=== PATIENT | female | born 1935 | race Caucasian/White ===

== ENCOUNTER 2017-11-02 16:19 | Emergency (ER) | payer MEDICARE ==
[~2017-11-02] VITALS: Ht 162.6 cm; Wt 79.4 kg
[~2017-11-02 16:19] MED LIST: AMOX250 PO; ASPI81EC PO; CEFU500 PO; CEPH500 PO; COPAXONE INJ; CYAN1000 PO; DOCU100 PO; ERGO400 PO; FISH1000 PO; HYDACE5325 PO; HYDCHL12.5 PO; HYDR1TAB94 PO; LANS15EC PO; LAVAP17G PO; LIDO5TP TOP; MS MED; Macrobid 100 M100 MG PO; ONDA4ODT MM; POTA10T PO; PRED20 PO; Pyridium100 MG PO; TECFIDERA120 MG PO
[2017-11-02] MEDS ORDERED: TECFIDERA240 MG PO (16:59)
[2017-11-02 17:03] LABS: BASOPHILS ABSOLUTE AUTO 0.02 K/mm3 (0.00-0.23); BASOPHILS PERCENT AUTO 0 % (0-2); EOSINOPHILS ABSOLUTE AUTO 0.01 K/mm3 (0.00-0.68); EOSINOPHILS PERCENT AUTO 0 % (0-6); Hematocrit 35.5 % (33.0-51.0); Hemoglobin 11.5 g/dL (11.5-16.0); IMMATURE GRAN ABSOLUTE AUTO 0.07 K/mm3 (0.00-0.10); IMMATURE GRAN PERCENT AUTO 1 % (0-1); LYMPHOCYTES ABSOLUTE AUTO 2.82 K/mm3 (0.84-5.20); LYMPHOCYTES PERCENT AUTO 27 % (21-46); MONOCYTES ABSOLUTE AUTO 0.36 K/mm3 (0.16-1.47); MONOCYTES PERCENT AUTO 3 % (4-13); Mean Corpuscular HGB 26.4 pg (26.0-34.0); Mean Corpuscular HGB Conc 32.4 g/dL (31.5-36.5); Mean Corpuscular Volume 82 fL (80-100); Mean Platelet Volume 9.8 fL (9.1-12.4); NEUTROPHILS ABSOLUTE AUTO 7.27 K/mm3 (1.96-9.15); NEUTROPHILS PERCENT AUTO 69 % (41-73); Platelet Count 440 K/mm3 (150-400); RDW Coefficient Variation 13.9 % (11.7-14.2); RDW Standard Deviation 41.3 fL (35.1-46.3); Red Blood Cell Count 4.35 M/mm3 (3.80-5.20); White Blood Cell Count 10.55 K/mm3 (4.00-11.30)
[2017-11-02 17:19] LABS: Alanine Aminotransfer (ALT/SGP 16 U/L (12-78); Albumin, Blood 3.5 g/dL (3.4-5.0); Albumin/Globulin Ratio 0.8 (0.8-1.8); Alk Phos 101 U/L (50-136); Anion Gap 9 mmol/L (6-16); Aspartate Aminotrans (AST/SGOT 12 U/L (12-37); Bilirubin, Total 0.4 mg/dL (0.1-1.0); Blood Urea Nitrogen 15 mg/dL (8-24); Bun/Creatinine Ratio 25.7 (12.0-20.0); CO2, Blood 26 mmol/L (21-32); Calcium, Blood 9.6 mg/dL (8.5-10.1); Chloride, Blood 100 mmol/L (98-108); Creatinine, Blood 0.58 mg/dL (0.40-1.00); Globulin, Blood 4.3 g/dL (2.2-4.0); Glomerular Filtration Rate >60 (60-); Glucose, Blood 130 mg/dL (70-99); Potassium, Blood 3.8 mmol/L (3.5-5.5); Sodium, Blood 135 mmol/L (136-145); Total Protein, Blood 7.8 g/dL (6.4-8.2)
[2017-11-02] MEDS ORDERED: Kristalose20 GM PO (18:09)
== END 2017-11-02 19:08 | disposition home or self-care (01) ==
LOC: ER 16:19
PROVIDERS: Emergency Medicine
DX: K59.00 Constipation, unspecified (principal)
CPT/HCPCS: 36415; 74019; 80053; 85025; 96374; 99283; J2405

== ENCOUNTER 2021-05-09 09:17 | Inpatient (IN) | payer MEDICARE ==
[~2021-05-09] VITALS: Ht 157.5 cm; Wt 76.2 kg
[~2021-05-09 09:17] MED LIST changes: +ASPI81CH PO; -ASPI81EC PO; +CALCIUM 500 MG1 EACH PO; -CYAN1000 PO; +CYAN500 PO; -ERGO400 PO; +FERSU300 PO; -FISH1000 PO; +FOLI400 PO; +Fish Oil 10001000 MG PO; +Kristalose20 GM PO; +METO25 PO; +QUININE SULFAT324 MG PO; +TECFIDERA240 MG PO; +VITAMIN D32000 UNI3 PO
[2021-05-09 09:58] LABS: BASOPHILS ABSOLUTE AUTO 0.04 K/mm3 (0.00-0.23); BASOPHILS PERCENT AUTO 0 % (0-2); EOSINOPHILS ABSOLUTE AUTO 0.06 K/mm3 (0.00-0.68); EOSINOPHILS PERCENT AUTO 1 % (0-6); Hematocrit 38.6 % (33.0-51.0); Hemoglobin 12.6 g/dL (11.5-16.0); IMMATURE GRAN ABSOLUTE AUTO 0.05 K/mm3 (0.00-0.10); IMMATURE GRAN PERCENT AUTO 0 % (0-1); LYMPHOCYTES ABSOLUTE AUTO 3.68 K/mm3 (0.84-5.20); LYMPHOCYTES PERCENT AUTO 32 % (21-46); MONOCYTES ABSOLUTE AUTO 0.53 K/mm3 (0.16-1.47); MONOCYTES PERCENT AUTO 5 % (4-13); Mean Corpuscular HGB 27.5 pg (26.0-34.0); Mean Corpuscular HGB Conc 32.6 g/dL (31.5-36.5); Mean Corpuscular Volume 84 fL (80-100); Mean Platelet Volume 10.2 fL (9.1-12.4); NEUTROPHILS ABSOLUTE AUTO 7.19 K/mm3 (1.96-9.15); NEUTROPHILS PERCENT AUTO 62 % (41-73); Platelet Count 320 K/mm3 (150-400); RDW Coefficient Variation 14.8 % (11.7-14.2); RDW Standard Deviation 45.5 fL (35.1-46.3); Red Blood Cell Count 4.58 M/mm3 (3.80-5.20); White Blood Cell Count 11.55 K/mm3 (4.00-11.30)
[2021-05-09 10:26] LABS: Anion Gap 6 mmol/L (6-16); Blood Urea Nitrogen 19 mg/dL (8-24); Bun/Creatinine Ratio 31.2 (12.0-20.0); CO2, Blood 26 mmol/L (21-32); Calcium, Blood 8.9 mg/dL (8.5-10.1); Chloride, Blood 102 mmol/L (98-108); Creatinine, Blood 0.61 mg/dL (0.40-1.00); Glomerular Filtration Rate >60 (60-); Glucose, Blood 118 mg/dL (70-99); Potassium, Blood 5.5 mmol/L (3.5-5.5); Sodium, Blood 134 mmol/L (136-145)
[2021-05-09 11:37] LABS: Influenza A, PCR NEGATIVE (NEGATIVE); Influenza B, PCR NEGATIVE (NEGATIVE); Resp Syncytial Virus, PCR NEGATIVE (NEGATIVE); SARS-Cov-2 (COVID-19) PCR, MMC NEGATIVE (NEGATIVE)
[2021-05-09] MEDS ORDERED: Amiodarone HCl200 MG PO (16:55)
[2021-05-09] MEDS ORDERED: SERT25 PO (16:56)
[2021-05-09] MEDS ORDERED: XARELTO20 MG PO (16:57)
[2021-05-09] MEDS ORDERED: PROBIOTIC1 EA13 PO (16:58)
[2021-05-09] MEDS ORDERED: VITAMIN D31000 UNI1 PO (17:03)
--- NOTE | 2021-05-09 18:15 | NUR ---
SHIFT SUMMARY PT ARRIVED FROM THE ER AT APPROXIMATELY 1410. PT IS ALERT AND ORIENTED BUT [place]. PAIN HAS BEEN MANAGED WITH FENTANYL AND NORCO SINCE SHE ARRIVED. PT DECLINED DINNER BUT IS TOLERATING FLUIDS. PLAN FOR SURGERY TOMORROW WITH DR. GARZA. VSS ALTHOUGH PT DOES HAVE SOME HTN BUT NO LONGER TAKES MEDICATION FOR BP CONTROL. WILL MONITOR UNTIL REPORT TO BUSHRA FRAZN.
[2021-05-10 04:59] LABS: BASOPHILS ABSOLUTE AUTO 0.02 K/mm3 (0.00-0.23); BASOPHILS PERCENT AUTO 0 % (0-2); EOSINOPHILS ABSOLUTE AUTO 0.05 K/mm3 (0.00-0.68); EOSINOPHILS PERCENT AUTO 1 % (0-6); Hematocrit 33.1 % (33.0-51.0); Hemoglobin 10.5 g/dL (11.5-16.0); IMMATURE GRAN ABSOLUTE AUTO 0.03 K/mm3 (0.00-0.10); IMMATURE GRAN PERCENT AUTO 0 % (0-1); LYMPHOCYTES ABSOLUTE AUTO 2.34 K/mm3 (0.84-5.20); LYMPHOCYTES PERCENT AUTO 26 % (21-46); MONOCYTES ABSOLUTE AUTO 0.73 K/mm3 (0.16-1.47); MONOCYTES PERCENT AUTO 8 % (4-13); Mean Corpuscular HGB 27.3 pg (26.0-34.0); Mean Corpuscular HGB Conc 31.7 g/dL (31.5-36.5); Mean Corpuscular Volume 86 fL (80-100); Mean Platelet Volume 10.3 fL (9.1-12.4); NEUTROPHILS ABSOLUTE AUTO 5.99 K/mm3 (1.96-9.15); NEUTROPHILS PERCENT AUTO 66 % (41-73); Platelet Count 308 K/mm3 (150-400); RDW Coefficient Variation 14.7 % (11.7-14.2); RDW Standard Deviation 46.3 fL (35.1-46.3); Red Blood Cell Count 3.85 M/mm3 (3.80-5.20); White Blood Cell Count 9.16 K/mm3 (4.00-11.30)
[2021-05-10 05:11] LABS: International Normalized Ratio 0.98; Prothrombin Time Results 10.3 Sec (9.7-11.5)
[2021-05-10 05:31] LABS: Anion Gap 7 mmol/L (6-16); Blood Urea Nitrogen 19 mg/dL (8-24); Bun/Creatinine Ratio 23.7 (12.0-20.0); CO2, Blood 29 mmol/L (21-32); Calcium, Blood 8.8 mg/dL (8.5-10.1); Chloride, Blood 101 mmol/L (98-108); Glomerular Filtration Rate >60 (60-); Glucose, Blood 89 mg/dL (70-99); Potassium, Blood 4.1 mmol/L (3.5-5.5); Sodium, Blood 137 mmol/L (136-145)
--- NOTE | 2021-05-10 06:31 | NUR ---
PT VSS T/O NIGHT; VSS. LLE REMAINS SHORTENED AND EXT ROTATED. PAIN MGD PER EMAR AND W/GENTLE REPOSITIONING PT BENNIE. PT NPO POST MIDNIGHT FOR PLAN FOR SURGERY TODAY.
--- NOTE | 2021-05-10 11:11 | NUR ---
Pre-Op teaching done. Pt verbalizes understanding. Patient confirms NPO status and agrees with scheduled surgery. History, Chart, Medications and Allergies reviewed before start of procedure.
--- NOTE | 2021-05-10 13:42 | NUR ---
05/10/21 1342 Joanie Cobian PATIENT ARRIVED TO OR WITH BACON CATHETER IN PLACE DRAINING YELLOW URINE.
--- NOTE | 2021-05-10 17:58 | NUR ---
SHIFT SUMMARY PT A&OX4/[place], VSS/3LNC, S/P L HIP NAILING/GAUZE/FOAM TAPE. PAIN MANAGED WITH 5 MG NORCO. BENNIE PO REG DIET. BACON PATENT AND DRAINING YELLOW URINE, STAT LOCK ON, OFF FLOOR. WILL REPORT TO ONCOMING NOC RN.
--- NOTE | 2021-05-11 05:29 | NUR ---
SHIFT SUMMARY PT A&O X4 T/O SHIFT. POD 1 L HIP S/R NAILING. PT RESTED COMFORTABLY IN BED. BANDAGE CDI W/ MINIMAL SWELLING TO L HIP. PPP. TOLERATING PO INTAKE, VOIDING WELL. WEANING O2 DOWN TO 2L NC. CALL LIGHT W/IN REACH. MIN PAIN. SCDS IN PLACE.
[2021-05-11 09:02] LABS: BASOPHILS ABSOLUTE AUTO 0.01 K/mm3 (0.00-0.23); BASOPHILS PERCENT AUTO 0 % (0-2); EOSINOPHILS ABSOLUTE AUTO 0.01 K/mm3 (0.00-0.68); EOSINOPHILS PERCENT AUTO 0 % (0-6); Hematocrit 31.1 % (33.0-51.0); Hemoglobin 10.1 g/dL (11.5-16.0); IMMATURE GRAN ABSOLUTE AUTO 0.04 K/mm3 (0.00-0.10); IMMATURE GRAN PERCENT AUTO 0 % (0-1); LYMPHOCYTES PERCENT AUTO 18 % (21-46); MONOCYTES ABSOLUTE AUTO 0.96 K/mm3 (0.16-1.47); MONOCYTES PERCENT AUTO 8 % (4-13); Mean Corpuscular HGB 27.5 pg (26.0-34.0); Mean Corpuscular HGB Conc 32.5 g/dL (31.5-36.5); Mean Corpuscular Volume 85 fL (80-100); NEUTROPHILS ABSOLUTE AUTO 8.85 K/mm3 (1.96-9.15); NEUTROPHILS PERCENT AUTO 74 % (41-73); Platelet Count 280 K/mm3 (150-400); RDW Coefficient Variation 14.4 % (11.7-14.2); RDW Standard Deviation 44.6 fL (35.1-46.3); Red Blood Cell Count 3.67 M/mm3 (3.80-5.20); White Blood Cell Count 11.97 K/mm3 (4.00-11.30)
--- NOTE | 2021-05-11 16:58 | NUR ---
1350 PATIENT'S FIRST VOID AFTER BACON CATH REMOVAL WAS UNMEASURED BUT ESTIMATED ABOUT 500 ML IN AMOUNT.
--- NOTE | 2021-05-11 17:23 | NUR ---
SHIFT SUMMARY PT A&OX4, VSS/RA, POD1 L HIP NAILING, 2 MEDIPORE DRY/INTACT. PAIN TREATED WITH 1-2 NORCO Q4 PRN PAIN. BENNIE PO. HEAVY 2 PP STAND/PIVOT TRANSFER WITH GB/FWW, TO CHAIR/BED/BSC. ATTENDS ON FOR INCONTINENCE/LEAKAGE. WILL REPORT TO ONCOMING NOC MARIA M.
--- NOTE | 2021-05-12 04:58 | NUR ---
ALERT AND ORIENTED X'S 4, [place]. DENIED PAIN THROUGH NIGHT, SLEPT IN LONG INTERVALS. DRESSING CLEAN DRY AND INTACT TO LEFT HIP. CALL WELCH IN REACH, SAFTY MAINTAINED.
[2021-05-12 06:13] LABS: BASOPHILS ABSOLUTE AUTO 0.02 K/mm3 (0.00-0.23); BASOPHILS PERCENT AUTO 0 % (0-2); EOSINOPHILS ABSOLUTE AUTO 0.09 K/mm3 (0.00-0.68); EOSINOPHILS PERCENT AUTO 1 % (0-6); Hematocrit 32.5 % (33.0-51.0); Hemoglobin 10.3 g/dL (11.5-16.0); IMMATURE GRAN ABSOLUTE AUTO 0.02 K/mm3 (0.00-0.10); IMMATURE GRAN PERCENT AUTO 0 % (0-1); LYMPHOCYTES ABSOLUTE AUTO 2.03 K/mm3 (0.84-5.20); LYMPHOCYTES PERCENT AUTO 25 % (21-46); MONOCYTES PERCENT AUTO 8 % (4-13); Mean Corpuscular HGB 27.1 pg (26.0-34.0); Mean Corpuscular HGB Conc 31.7 g/dL (31.5-36.5); Mean Corpuscular Volume 86 fL (80-100); Mean Platelet Volume 10.6 fL (9.1-12.4); NEUTROPHILS ABSOLUTE AUTO 5.43 K/mm3 (1.96-9.15); NEUTROPHILS PERCENT AUTO 66 % (41-73); Platelet Count 290 K/mm3 (150-400); RDW Coefficient Variation 14.6 % (11.7-14.2); RDW Standard Deviation 45.4 fL (35.1-46.3); White Blood Cell Count 8.29 K/mm3 (4.00-11.30)
[2021-05-12 07:23] LABS: Anion Gap 9 mmol/L (6-16); Blood Urea Nitrogen 18 mg/dL (8-24); CO2, Blood 27 mmol/L (21-32); Calcium, Blood 9.1 mg/dL (8.5-10.1); Chloride, Blood 102 mmol/L (98-108); Creatinine, Blood 0.67 mg/dL (0.40-1.00); Glomerular Filtration Rate >60 (60-); Glucose, Blood 91 mg/dL (70-99); Potassium, Blood 4.1 mmol/L (3.5-5.5); Sodium, Blood 138 mmol/L (136-145)
--- NOTE | 2021-05-12 15:01 | NUR ---
SHIFT SUMMARY PATIENT [place], ALERT, AND ORIENTED THROUGHOUT SHIFT. TOLERATING REGULAR DIET AND FLUIDS. NO IV ACCESS. ORDER IN CHART FOR NO IV. VOIDING WELL. 2 PERSON MOD ASSIST TO PIVOT TO CHAIR AND COMMODE. PAIN CONTROLLED WITH PO PAIN MEDS. NO BM AT THIS TIME. PLAN TO DISCHARGE TO SNF TOMORROW 05/13/2021. MEDIPORE DRESSING TO LEFT HIP INCISION. REPORT GIVEN TO RN ASSUMING CARE.
--- NOTE | 2021-05-12 18:33 | NUR ---
NOTE SINCE ASSUMTION OF CARE, PT HAS USED BSC x 2 & RESTED UP IN CHAIR. MEDICATED FOR PAIN & DECLINES NEEDS.
--- NOTE | 2021-05-13 06:36 | NUR ---
ALERT AND ORIENTED X'S 4. MEDICATED WITH HYDROCODONE 5/325MG FOR PAIN MANAGEMENT TO LEFT HIP, EFFECTIVE RELIEF. PATIENT STATED SHES STARTING TO FEEL LESS PAIN. 2 ASSIST FOR TRANSFERS WITH USE OF WALKER. INCONTINENT X'S 2 THROUGH THE NIGHT. DRESSING TO LEFT HIP CLEAN DRY AND INTACT, SAFETY MAINTAINED, CALL WELCH IN REACH.
--- NOTE | 2021-05-13 12:04 | NUR ---
SHIFT ASSESSMENT DOCUMENTATION BY SOO GARZA STUDENT NURSE REVIEWED AND ACCURATE.
--- NOTE | 2021-05-13 16:33 | NUR ---
SHIFT SUMMARY PT IS ALERT AND ORIENTED. SHE IS HARD OF HEARING. PT IS ABLE TO STAND AND SHIFT WEIGHT BETWEEN LEGS. PT IS A 2 PERSON ASSIST AND ABLE TO USE THE BSC. LUNG SOUNDS DIMINISHED ON AUSCULTATION. PT HAD A BOWEL MOVEMENT TODAY. 2 DRESSINGS ON L LEG HAD SCANT DRAINAGE AND WERE CHANGED WITH 2 MEDIPORE DRESSINGS. PT STATED SHE HAS CRAMPING IN LEG BUT IS MANAGED WITH REQUIP. SKIN IS FRAGILE DUE TO AGE AND APPEARS PALE. PT STATED SHE HAS NO PAIN IN L HIP WHEN STILL, BUT IS A 10 WITH MOVEMENT. PAIN IN L HIP IS MANAGED WITH NORCO.
--- NOTE | 2021-05-13 17:23 | NUR ---
SHIFT SUMMARY PT IS POD#3 FROM [facility]. PT IS A 2 PERSON ASSIST WHEN OOB. SHE SAT UP TO THE CHAIR FOR MUCH OF THE DAY. PAIN IS MANAGED WITH NORCO. PT TOLERATING PO. PLAN FOR POSSIBLE DISCHARG TO SNF TOMORROW. VSS. WILL MONITOR UNTIL REPORT TO BUSHRA RN.
--- NOTE | 2021-05-14 06:11 | NUR ---
ALERT X'4, SLEPT WELL THROUGH NIGHT. MEDICATED DUE TO C/O LEFT HIP PAIN, EFFECTIVE RELIEF. DRESSING TO LEFT HIP CLEAN DRY AND INTACT. SAFETY MAINTAINED, CALL WELCH IN REACH.
[2021-05-14 15:18] LABS: Influenza A, PCR NEGATIVE (NEGATIVE); Influenza B, PCR NEGATIVE (NEGATIVE); Resp Syncytial Virus, PCR NEGATIVE (NEGATIVE); SARS-Cov-2 (COVID-19) PCR, MMC NEGATIVE (NEGATIVE)
--- NOTE | 2021-05-14 16:34 | NUR ---
SHIFT SUMMARY PT POD #4 FOR FOR R HIP GAMMA NAILING. PT IS A 1 PERSON ASSIST WITH FWW. MEDIPOR DRESSING TO R HIP CDI. PT TRANSFERRED TO [facility]. VSS. PT TRANSPORTED BY WHEELCHAIR TO FACILITY.
== END 2021-05-14 16:08 | DRG 482 ==
LOC: ER 09:17 → ERHOLD 11:39 → SURS 11:39
PROVIDERS: Emergency Medicine; Internal Medicine; Orthopaedic Surgery; ADMIT Internal Medicine
PROC: 0QS706Z Reposition Left Upper Femur with Intramedullary Internal Fixation Device, Open Approach (ICD-10-PCS; principal; 2021-05-10 12:00)
DX: S72.142A Displaced intertrochanteric fracture of left femur, initial encounter for closed fracture (principal); Z20.822 Contact with and (suspected) exposure to COVID-19; I10 Essential (primary) hypertension; G35 Multiple sclerosis; I48.0 Paroxysmal atrial fibrillation; F41.9 Anxiety disorder, unspecified; W18.30XA Fall on same level, unspecified, initial encounter; Z66 Do not resuscitate; Z87.440 Personal history of urinary (tract) infections; Z86.73 Personal history of transient ischemic attack (TIA), and cerebral infarction without residual deficits; Z79.01 Long term (current) use of anticoagulants; Z79.899 Other long term (current) drug therapy; Z79.82 Long term (current) use of aspirin; Z88.2 Allergy status to sulfonamides; Z88.8 Allergy status to other drugs, medicaments and biological substances; Z88.5 Allergy status to narcotic agent; Z88.1 Allergy status to other antibiotic agents; Y92.008 Other place in unspecified non-institutional (private) residence as the place of occurrence of the external cause
CPT/HCPCS: 0241U; 36415; 51702; 73502; 80048; 85025; 85610; 93005; 93010; 96374; 96375; 97110; 97110-CQ; 97116; 97162; 97166; 97530; 97530-CQ; 97535; 99285-25; A9270; C1713; J0171; J0690; J1100; J2270; J2405; J2704; J3010; J7120

== ENCOUNTER 2021-10-07 06:36 | Emergency (ER) | payer MEDICARE, OTHER ==
[~2021-10-07] VITALS: Ht 165.1 cm; Wt 90.7 kg
[~2021-10-07 06:36] MED LIST changes: +Amiodarone HCl200 MG PO; +PROBIOTIC1 EA13 PO; +SERT25 PO; +VITAMIN D31000 UNI1 PO; +XARELTO20 MG PO
[2021-10-07 07:05] LABS: BASOPHILS ABSOLUTE AUTO 0.03 K/mm3 (0.00-0.23); BASOPHILS PERCENT AUTO 0 % (0-2); EOSINOPHILS ABSOLUTE AUTO 0.18 K/mm3 (0.00-0.68); EOSINOPHILS PERCENT AUTO 2 % (0-6); Hematocrit 39.2 % (33.0-51.0); Hemoglobin 12.2 g/dL (11.5-16.0); IMMATURE GRAN ABSOLUTE AUTO 0.06 K/mm3 (0.00-0.10); IMMATURE GRAN PERCENT AUTO 1 % (0-1); LYMPHOCYTES ABSOLUTE AUTO 3.02 K/mm3 (0.84-5.20); LYMPHOCYTES PERCENT AUTO 31 % (21-46); MONOCYTES ABSOLUTE AUTO 0.58 K/mm3 (0.16-1.47); MONOCYTES PERCENT AUTO 6 % (4-13); Mean Corpuscular HGB 24.6 pg (26.0-34.0); Mean Corpuscular HGB Conc 31.1 g/dL (31.5-36.5); Mean Corpuscular Volume 79 fL (80-100); NEUTROPHILS ABSOLUTE AUTO 5.97 K/mm3 (1.96-9.15); NEUTROPHILS PERCENT AUTO 61 % (41-73); Platelet Count 355 K/mm3 (150-400); RDW Coefficient Variation 16.6 % (11.7-14.2); RDW Standard Deviation 47.3 fL (35.1-46.3); Red Blood Cell Count 4.96 M/mm3 (3.80-5.20); White Blood Cell Count 9.84 K/mm3 (4.00-11.30)
[2021-10-07 07:21] LABS: Albumin, Blood 3.6 g/dL (3.4-5.0); Albumin/Globulin Ratio 0.9 (0.8-1.8); Bilirubin, Total 0.7 mg/dL (0.1-1.0); Bun/Creatinine Ratio 21.4 (12.0-20.0); Calcium, Blood 9.3 mg/dL (8.5-10.1); Creatinine, Blood 0.65 mg/dL (0.40-1.00); Potassium, Blood 3.9 mmol/L (3.5-5.5); Total Protein, Blood 7.6 g/dL (6.4-8.2)
[2021-10-07] MEDS ORDERED: ROPINIROLE HC PO (09:56)
[2021-10-07] MEDS ORDERED: MYRBETRIQ50 MG PO (09:56)
[2021-10-07] MEDS ORDERED: AMIODARONE HCL100 M5 PO (09:56)
== END 2021-10-07 11:03 | disposition home or self-care (01) ==
LOC: ER 06:36
PROVIDERS: Student in an Organized Health Care Education/Training Program
DX: S01.01XA Laceration without foreign body of scalp, initial encounter (principal); S70.02XA Contusion of left hip, initial encounter; S70.01XA Contusion of right hip, initial encounter; S09.90XA Unspecified injury of head, initial encounter; W18.39XA Other fall on same level, initial encounter; I10 Essential (primary) hypertension; I48.20 Chronic atrial fibrillation, unspecified; Z88.5 Allergy status to narcotic agent; Z88.1 Allergy status to other antibiotic agents; Z88.8 Allergy status to other drugs, medicaments and biological substances; Z79.01 Long term (current) use of anticoagulants; Z79.899 Other long term (current) drug therapy; Z23 Encounter for immunization
CPT/HCPCS: 70450; 72125; 73522; 80053; 85025; 90714; A9270; J2765; J3010

== ENCOUNTER 2022-01-05 12:33 | Emergency (ER) | payer MEDICARE, OTHER ==
[~2022-01-05] VITALS: Ht 157.5 cm; Wt 79.8 kg
[~2022-01-05 12:33] MED LIST changes: +AMIODARONE HCL100 M5 PO; +MYRBETRIQ50 MG PO; +ROPINIROLE HC PO
[2022-01-05] MEDS ORDERED: HYDR1TAB94 PO (13:41)
== END 2022-01-05 14:41 | disposition home or self-care (01) ==
LOC: ER 12:33
DX: M25.562 Pain in left knee (principal); I10 Essential (primary) hypertension; G35 Multiple sclerosis; Z88.5 Allergy status to narcotic agent; Z88.1 Allergy status to other antibiotic agents; Z88.8 Allergy status to other drugs, medicaments and biological substances; Z79.899 Other long term (current) drug therapy; Z79.01 Long term (current) use of anticoagulants; Z86.73 Personal history of transient ischemic attack (TIA), and cerebral infarction without residual deficits
CPT/HCPCS: 73562-LT

== ENCOUNTER 2023-01-18 08:06 | Emergency (ER) | payer OTHER, MEDICARE ==
[~2023-01-18] VITALS: Ht 157.5 cm; Wt 75.3 kg
[2023-01-18 10:12] VITALS: BP 167/76
== END 2023-01-18 10:57 | disposition home or self-care (01) ==
LOC: ER 08:06
DX: M54.2 Cervicalgia (principal); M25.551 Pain in right hip; I10 Essential (primary) hypertension; W01.198A Fall on same level from slipping, tripping and stumbling with subsequent striking against other object, initial encounter
CPT/HCPCS: 70450; 72125; 72170; 96372; 99284-25; A9270; J1885

== ENCOUNTER 2023-02-02 17:15 | Emergency (ER) | payer MEDICARE, OTHER ==
[~2023-02-02] VITALS: Ht 160 cm; Wt 75.3 kg
[2023-02-02 18:01] LABS: BASOPHILS ABSOLUTE AUTO 0.02 K/mm3 (0.00-0.23); BASOPHILS PERCENT AUTO 0 % (0-2); EOSINOPHILS ABSOLUTE AUTO 0.17 K/mm3 (0.00-0.68); EOSINOPHILS PERCENT AUTO 2 % (0-6); Hematocrit 37.9 % (33.0-51.0); Hemoglobin 12.4 g/dL (11.5-16.0); IMMATURE GRAN ABSOLUTE AUTO 0.02 K/mm3 (0.00-0.10); IMMATURE GRAN PERCENT AUTO 0 % (0-1); LYMPHOCYTES ABSOLUTE AUTO 2.72 K/mm3 (0.84-5.20); LYMPHOCYTES PERCENT AUTO 31 % (21-46); MONOCYTES ABSOLUTE AUTO 0.83 K/mm3 (0.16-1.47); MONOCYTES PERCENT AUTO 10 % (4-13); Mean Corpuscular HGB 26.9 pg (26.0-34.0); Mean Corpuscular HGB Conc 32.7 g/dL (31.5-36.5); Mean Corpuscular Volume 82 fL (80-100); Mean Platelet Volume 9.7 fL (9.1-12.4); NEUTROPHILS ABSOLUTE AUTO 4.97 K/mm3 (1.96-9.15); NEUTROPHILS PERCENT AUTO 57 % (41-73); Platelet Count 315 K/mm3 (150-400); RDW Coefficient Variation 16.3 % (11.7-14.2); Red Blood Cell Count 4.61 M/mm3 (3.80-5.20); White Blood Cell Count 8.73 K/mm3 (4.00-11.30)
[2023-02-02 18:20] LABS: Albumin, Blood 3.6 g/dL (3.4-5.0); Albumin/Globulin Ratio 1.1 (0.8-1.8); Bilirubin, Total 0.3 mg/dL (0.1-1.0); Bun/Creatinine Ratio 19.5 (12.0-20.0); C-Reactive Protein, High Sens. 7.42 mg/L (0.000-3.000); Calcium, Blood 9.6 mg/dL (8.5-10.1); Creatinine, Blood 0.67 mg/dL (0.40-1.00); Globulin, Blood 3.4 g/dL (2.2-4.0); Potassium, Blood 3.7 mmol/L (3.5-5.5)
[2023-02-02] MEDS ORDERED: DOXY100 PO (20:03)
[2023-02-02] MEDS ORDERED: HYDR1TAB94 PO (20:03)
[2023-02-02 20:18] VITALS: BP 175/84
== END 2023-02-02 20:20 | disposition home or self-care (01) ==
LOC: ER 17:15
PROVIDERS: Emergency Medicine
DX: L03.115 Cellulitis of right lower limb (principal); I10 Essential (primary) hypertension; G35 Multiple sclerosis; I48.0 Paroxysmal atrial fibrillation; Z86.73 Personal history of transient ischemic attack (TIA), and cerebral infarction without residual deficits; Z88.2 Allergy status to sulfonamides; Z88.5 Allergy status to narcotic agent; Z88.1 Allergy status to other antibiotic agents; Z88.8 Allergy status to other drugs, medicaments and biological substances; Z79.899 Other long term (current) drug therapy; Z79.01 Long term (current) use of anticoagulants
CPT/HCPCS: 73630; 80053; 84550; 85025; 85651; 86141; 96374; 99284-25; A9270; J2270

== ENCOUNTER → 2023-02-06 | Outpatient (CLI) | payer MEDICARE, OTHER ==
[~2023-02-06] MED LIST changes: +DOXY100 PO
[2023-02-09 09:53] LABS: Source, Urine Clean Catch
[2023-02-09 12:34] LABS: Appearance, Urine Clear (Clear); Bilirubin, Urine Neg (Neg); Blood, Urine Neg (Neg); Color, Urine Yellow (P-Yellow); Glucose Qualitative, Urine Neg (Neg); Ketones, Urine Neg (Neg); Leukocyte Esterase, Urine Neg (Neg); Nitrite, Urine Neg (Neg); Protein, Urine 2+ (Neg); Urobilinogen, Urine NORM (Normal)
[2023-02-09 12:40] LABS: Bacteria Not Seen /hpf; Red Blood Cells, Urine Not Seen /hpf (0-2); Squamous Epithelial Cells Not Seen /hpf (Few); White Blood Cells, Urine 0-2 /hpf (0-5)
== END | disposition home or self-care (01) ==
LOC: LAB SHORT 16:40 → LAB 16:40
PROVIDERS: Legal Medicine
DX: N39.0 Urinary tract infection, site not specified (principal)
CPT/HCPCS: 81001

== ENCOUNTER 2023-05-16 20:08 | Emergency (ER) | payer OTHER, MEDICARE ==
[~2023-05-16] VITALS: Ht 160 cm; Wt 77.1 kg
[2023-05-16] MEDS ORDERED: Prednisone10 MG (20:24)
[2023-05-16] MEDS ORDERED: ALBU2.5V5 INH (20:24)
[2023-05-16] MEDS ORDERED: ACET325 (20:25)
[2023-05-17] MEDS ORDERED: OXAYDO5 M1 PO (00:12)
[2023-05-17 01:02] LABS: BASOPHILS ABSOLUTE AUTO 0.06 K/mm3 (0.00-0.23); BASOPHILS PERCENT AUTO 0 % (0-2); EOSINOPHILS ABSOLUTE AUTO 0.01 K/mm3 (0.00-0.68); EOSINOPHILS PERCENT AUTO 0 % (0-6); Hematocrit 39.9 % (33.0-51.0); Hemoglobin 12.6 g/dL (11.5-16.0); IMMATURE GRAN PERCENT AUTO 1 % (0-1); LYMPHOCYTES ABSOLUTE AUTO 3.87 K/mm3 (0.84-5.20); LYMPHOCYTES PERCENT AUTO 16 % (21-46); MONOCYTES PERCENT AUTO 7 % (4-13); Mean Corpuscular HGB 26.1 pg (26.0-34.0); Mean Corpuscular HGB Conc 31.6 g/dL (31.5-36.5); Mean Corpuscular Volume 83 fL (80-100); Mean Platelet Volume 9.8 fL (9.1-12.4); NEUTROPHILS ABSOLUTE AUTO 18.83 K/mm3 (1.96-9.15); NEUTROPHILS PERCENT AUTO 77 % (41-73); Platelet Count 417 K/mm3 (150-400); RDW Coefficient Variation 14.9 % (11.7-14.2); RDW Standard Deviation 45.2 fL (35.1-46.3); Red Blood Cell Count 4.83 M/mm3 (3.80-5.20); White Blood Cell Count 24.57 K/mm3 (4.00-11.30)
[2023-05-17 01:20] LABS: Albumin, Blood 3.4 g/dL (3.4-5.0); Bilirubin, Total 0.5 mg/dL (0.1-1.0); Bun/Creatinine Ratio 27.1 (12.0-20.0); Calcium, Blood 8.8 mg/dL (8.5-10.1); Creatinine, Blood 0.63 mg/dL (0.40-1.00); Globulin, Blood 3.4 g/dL (2.2-4.0); Potassium, Blood 3.6 mmol/L (3.5-5.5); Total Protein, Blood 6.8 g/dL (6.4-8.2)
[2023-05-17 03:43] LABS: Source, Urine Fem Cath
[2023-05-17 03:47] LABS: Bilirubin, Urine Neg (Neg); Blood, Urine Neg (Neg); Glucose Qualitative, Urine Neg (Neg); Ketones, Urine Neg (Neg); Leukocyte Esterase, Urine Neg (Neg); Nitrite, Urine Neg (Neg); Protein, Urine 1+ (Neg); Urobilinogen, Urine NORM (Normal)
[2023-05-17 04:22] LABS: Influenza A, PCR NEGATIVE (NEGATIVE); Influenza B, PCR NEGATIVE (NEGATIVE); Resp Syncytial Virus, PCR NEGATIVE (NEGATIVE); SARS-Cov-2 (COVID-19) PCR, MMC NEGATIVE (NEGATIVE)
[2023-05-17 04:40] LABS: Appearance, Urine Clear (Clear); Color, Urine Pale Yellow (P-Yellow)
[2023-05-17 14:15] VITALS: BP 148/72
== END 2023-05-17 14:22 | disposition home or self-care (01) ==
LOC: ER 20:08
PROVIDERS: Student in an Organized Health Care Education/Training Program
DX: S42.291A Other displaced fracture of upper end of right humerus, initial encounter for closed fracture (principal); D72.829 Elevated white blood cell count, unspecified; I10 Essential (primary) hypertension; G35 Multiple sclerosis; I48.91 Unspecified atrial fibrillation; Z88.2 Allergy status to sulfonamides; Z88.1 Allergy status to other antibiotic agents; Z88.5 Allergy status to narcotic agent; Z88.8 Allergy status to other drugs, medicaments and biological substances; W01.0XXA Fall on same level from slipping, tripping and stumbling without subsequent striking against object, initial encounter; Z79.01 Long term (current) use of anticoagulants; Z79.52 Long term (current) use of systemic steroids; Z79.899 Other long term (current) drug therapy
CPT/HCPCS: 0241U; 71046; 73030; 73080; 80053; 83605; 85025; 93005; 93010; 96374; 96375; 96376; 99285-25; A9270; J1170; J1885; P9612

== ENCOUNTER → 2023-06-12 | Outpatient (CLI) | payer MEDICARE, OTHER ==
[~2023-06-12] MED LIST changes: +ACET325; +ALBU2.5V5 INH; +OXAYDO5 M1 PO; +Prednisone10 MG; +Voltaren100 GM TOP
[2023-06-13 13:49] LABS: Source, Urine Clean Catch
[2023-06-13 19:02] LABS: Appearance, Urine Clear (Clear); Bilirubin, Urine Neg (Neg); Blood, Urine Neg (Neg); Color, Urine Yellow (P-Yellow); Glucose Qualitative, Urine Neg (Neg); Ketones, Urine Neg (Neg); Leukocyte Esterase, Urine Neg (Neg); Nitrite, Urine Neg (Neg); Protein, Urine Neg (Neg); Urobilinogen, Urine NORM (Normal)
== END ==
LOC: LAB 17:35 → LAB SHORT 17:35
PROVIDERS: Legal Medicine
DX: R30.0 Dysuria (principal)
CPT/HCPCS: 81003

== ENCOUNTER 2023-06-19 19:03 | Emergency (ER) | payer MEDICARE, OTHER ==
[~2023-06-19] VITALS: Ht 160 cm; Wt 79.4 kg
[~2023-06-19 19:03] MED LIST changes: -Voltaren100 GM TOP
[2023-06-19] MEDS ORDERED: Voltaren100 GM TOP (22:57)
[2023-06-19 23:45] VITALS: BP 169/84
== END 2023-06-20 00:48 | disposition home or self-care (01) ==
LOC: ER 19:03
DX: M77.8 Other enthesopathies, not elsewhere classified (principal); I10 Essential (primary) hypertension; I48.0 Paroxysmal atrial fibrillation; Z86.73 Personal history of transient ischemic attack (TIA), and cerebral infarction without residual deficits; Z79.52 Long term (current) use of systemic steroids; Z79.899 Other long term (current) drug therapy; Z79.01 Long term (current) use of anticoagulants; Z88.1 Allergy status to other antibiotic agents; Z88.2 Allergy status to sulfonamides; Z88.5 Allergy status to narcotic agent; Z88.8 Allergy status to other drugs, medicaments and biological substances; Z91.81 History of falling
CPT/HCPCS: 73110; 99283-25

== ENCOUNTER 2023-06-25 07:15 | Emergency (ER) | payer MEDICARE, OTHER ==
[~2023-06-25] VITALS: Ht 162.6 cm; Wt 79.4 kg
[~2023-06-25 07:15] MED LIST changes: +Voltaren100 GM TOP
[2023-06-25 07:42] LABS: BASOPHILS ABSOLUTE AUTO 0.03 K/mm3 (0.00-0.23); BASOPHILS PERCENT AUTO 1 % (0-2); EOSINOPHILS PERCENT AUTO 2 % (0-6); Hematocrit 39.1 % (33.0-51.0); Hemoglobin 12.5 g/dL (11.5-16.0); IMMATURE GRAN ABSOLUTE AUTO 0.01 K/mm3 (0.00-0.10); IMMATURE GRAN PERCENT AUTO 0 % (0-1); LYMPHOCYTES ABSOLUTE AUTO 2.34 K/mm3 (0.84-5.20); LYMPHOCYTES PERCENT AUTO 36 % (21-46); MONOCYTES ABSOLUTE AUTO 0.35 K/mm3 (0.16-1.47); MONOCYTES PERCENT AUTO 5 % (4-13); Mean Corpuscular HGB 25.9 pg (26.0-34.0); Mean Corpuscular Volume 81 fL (80-100); Mean Platelet Volume 9.4 fL (9.1-12.4); NEUTROPHILS ABSOLUTE AUTO 3.74 K/mm3 (1.96-9.15); NEUTROPHILS PERCENT AUTO 57 % (41-73); Platelet Count 313 K/mm3 (150-400); RDW Coefficient Variation 15.2 % (11.7-14.2); RDW Standard Deviation 44.7 fL (35.1-46.3); Red Blood Cell Count 4.83 M/mm3 (3.80-5.20); White Blood Cell Count 6.57 K/mm3 (4.00-11.30)
[2023-06-25 08:03] LABS: Albumin, Blood 3.4 g/dL (3.4-5.0); Albumin/Globulin Ratio 0.9 (0.8-1.8); Bilirubin, Total 0.7 mg/dL (0.1-1.0); Bun/Creatinine Ratio 22.4 (12.0-20.0); Calcium, Blood 9.7 mg/dL (8.5-10.1); Creatinine, Blood 0.67 mg/dL (0.40-1.00); Globulin, Blood 3.6 g/dL (2.2-4.0); Potassium, Blood 3.8 mmol/L (3.5-5.5)
[2023-06-25 10:30] VITALS: BP 141/64
== END 2023-06-25 11:24 | disposition home or self-care (01) ==
LOC: ER 07:15
PROVIDERS: Emergency Medicine
DX: R07.9 Chest pain, unspecified (principal); Z88.5 Allergy status to narcotic agent; Z88.8 Allergy status to other drugs, medicaments and biological substances; Z88.1 Allergy status to other antibiotic agents; Z88.2 Allergy status to sulfonamides; Z79.899 Other long term (current) drug therapy; Z79.52 Long term (current) use of systemic steroids; I10 Essential (primary) hypertension; K21.9 Gastro-esophageal reflux disease without esophagitis
CPT/HCPCS: 71046; 80053; 83690; 84484; 85025; 93005; 93010; 99285-25; A9270

== ENCOUNTER → 2023-07-03 | Outpatient (CLI) | payer MEDICARE, OTHER ==
[2023-07-03 18:58] LABS: Appearance, Urine Clear (Clear); Bilirubin, Urine Neg (Neg); Blood, Urine Neg (Neg); Glucose Qualitative, Urine Neg (Neg); Ketones, Urine Neg (Neg); Leukocyte Esterase, Urine Neg (Neg); Nitrite, Urine Neg (Neg); Protein, Urine Neg (Neg); Specific Gravity, Urine 1.015 (1.003-1.022); Urobilinogen, Urine NORM (Normal)
[2023-07-03 19:12] LABS: Color, Urine Pale Yellow (P-Yellow)
== END ==
LOC: LAB 12:00 → LAB SHORT 12:00
PROVIDERS: Legal Medicine
DX: N39.3 Stress incontinence (female) (male) (principal)
CPT/HCPCS: 81003

== ENCOUNTER 2024-03-14 06:35 | Inpatient (IN) | payer OTHER, MEDICARE ==
[~2024-03-14] VITALS: Ht 162.6 cm; Wt 104.3 kg
[~2024-03-14 06:35] MED LIST changes: +ADULT TUSS100 MG/51 PO; +ARTIFICIAL TEAR15 M2 OP; +DULCOLAX400 MG/5 M PO; +FLUT.05NI; +MIRALAX17 GM PO; +VITAMIN D31250 MC2 PO; +Vitamin B Comple1 EA PO; +ZYRTEC10 M2
[2024-03-14] MEDS ORDERED: Methocarbamol 500 MG Tab PO ONE (07:00)
[2024-03-14] MEDS ORDERED: FentaNYL Citrate 50 MCG/ML 2 ML Injection IV ONE (07:00)
[2024-03-14] MEDS ORDERED: Ketorolac Tromethamine 30mg Vial IV ONE (07:00)
[2024-03-14] MEDS ORDERED: Morphine Sulfate 4 MG/1 ML Injection IV ONE (08:15)
[2024-03-14] MEDS ORDERED: Acetaminophen 500 MG Tab PO PRN (10:40)
[2024-03-14] MEDS ORDERED: FentaNYL Citrate 50 MCG/ML 2 ML Injection IV PRN ×2 (10:40→16:05)
[2024-03-14] MEDS ORDERED: FLU VACC TS2024-25(6MOS UP)/PF 45 MCG/0.5 ML SYRINGE IM SCH (10:45)
[2024-03-14] MEDS ORDERED: Polyethylene Glycol 3350 17 gm PO PRN (10:45)
[2024-03-14] MEDS ORDERED: Ondansetron HCl 2 MG / ML 2ML Vial IV PRN (10:45)
--- NOTE | 2024-03-14 11:54 | NUR ---
ATTEMPTED TO CALL FOR REPORT AT 0345.
--- NOTE | 2024-03-14 12:28 | NUR ---
ARRIVED TO 219 PT ARRIVED TO ROOM VIA GURNEY FROM ED WITH DAUGHTER. PT A/O X4, PAINFUL WHEN MOVED TO BED BUT DENIED PAIN SHORT AFTER. RLE EXT ROTATED AND SHORTENED STRONG PULSES ABLE TO WIGGLE TOES, DENIES N/T. BACON WAS PLACED IN ED AND UA SENT, DRAINING C/Y URINE. VSS ON RA. REVIEWED HX WITH PT AND DAUGHTER STEPH. UPDATED ON TX PLAN. BELONGINGS SENT HOME WITH STEPH-WATCH, CLOTHES/SOCKS. PLAN FOR POSSIBLE SX TOMORROW, SURGICAL PACKET ON CHART. CHG BATH COMPLETED WITH CATH CARE.
[2024-03-14 12:31] VITALS: BP 164/70
[2024-03-14 12:32] VITALS: BP 165/75
[2024-03-14 12:37] LABS: Source, Urine Foley catheter
[2024-03-14 12:40] LABS: Appearance, Urine Clear (Clear); Bilirubin, Urine Neg (Neg); Blood, Urine 2+ (Neg); Glucose Qualitative, Urine Neg (Neg); Ketones, Urine Neg (Neg); Leukocyte Esterase, Urine Neg (Neg); Nitrite, Urine Neg (Neg); Protein, Urine Neg (Neg); Specific Gravity, Urine 1.005 (1.003-1.022); Urobilinogen, Urine NORM (Normal)
[2024-03-14 12:56] LABS: Color, Urine Pale Yellow (P-Yellow)
[2024-03-14 12:57] LABS: Bacteria Rare /hpf; White Blood Cells, Urine 0-2 /hpf (0-5)
[2024-03-14 12:58] LABS: Squamous Epithelial Cells Rare /hpf (Few)
[2024-03-14] MEDS ORDERED: XARELTO15 MG PO (13:13)
[2024-03-14] MEDS ORDERED: THERA-D2000 UNIT PO (13:21)
[2024-03-14 14:16] LABS: Hematocrit 44.5 % (33.0-51.0); Hemoglobin 14.5 g/dL (11.5-16.0); Mean Corpuscular HGB 26.5 pg (26.0-34.0); Mean Corpuscular HGB Conc 32.6 g/dL (31.5-36.5); Mean Corpuscular Volume 81 fL (80-100); Mean Platelet Volume 10.4 fL (9.1-12.4); Platelet Count 278 K/mm3 (150-400); RDW Coefficient Variation 15.2 % (11.7-14.2); RDW Standard Deviation 44.8 fL (35.1-46.3); Red Blood Cell Count 5.48 M/mm3 (3.80-5.20); White Blood Cell Count 13.62 K/mm3 (4.00-11.30)
[2024-03-14 14:37] LABS: Bun/Creatinine Ratio 23.9 (12.0-20.0); Calcium, Blood 8.8 mg/dL (8.5-10.1); Creatinine, Blood 0.63 mg/dL (0.40-1.00); Potassium, Blood 3.9 mmol/L (3.5-5.5)
[2024-03-14 14:38] VITALS: BP 159/72
[2024-03-14] MEDS ORDERED: OxyCODONE HCL 5 MG TAB PO PRN (16:00)
--- NOTE | 2024-03-14 18:44 | NUR ---
SHIFT SUMMARY PT ADMITTED THIS AFTERNOON, PLAN FOR SURGERY TOMORROW AFTERNOON. PAIN HAS BEEN MANAGED WITH TYLENOL, FENTANYL AND OXYCODONE. EDUCATED PT THAT BUCKS TRACTION MAY BE HELPFUL FOR PAIN MANAGMENT/TO PREVENT SPASMS, PT WOULD LIKE TO REST AT THIS TIME BECAUSE SHE IS CURRENTLY COMFORTABLE. PT TOLERATING PO. VSS. PT USES CALL LIGHT APPROPRIATELY.
[2024-03-14 19:57] VITALS: BP 144/71
[2024-03-14] MEDS ORDERED: Docusate Sodium/Senna 1 Tab PO SCH (21:00)
[2024-03-15] VITALS (22 sets, daily range): BP systolic 127–185; BP diastolic 57–122
[2024-03-15 05:29] LABS: Hematocrit 40.9 % (33.0-51.0); Hemoglobin 13.2 g/dL (11.5-16.0); Mean Corpuscular HGB 26.3 pg (26.0-34.0); Mean Corpuscular HGB Conc 32.3 g/dL (31.5-36.5); Mean Corpuscular Volume 82 fL (80-100); Mean Platelet Volume 10.2 fL (9.1-12.4); Platelet Count 307 K/mm3 (150-400); RDW Standard Deviation 44.6 fL (35.1-46.3); Red Blood Cell Count 5.01 M/mm3 (3.80-5.20); White Blood Cell Count 10.92 K/mm3 (4.00-11.30)
[2024-03-15 05:53] LABS: Albumin, Blood 3.2 g/dL (3.4-5.0); Anion Gap 11 mmol/L (3-11); Blood Urea Nitrogen 16 mg/dL (8-24); Bun/Creatinine Ratio 25.6 (12.0-20.0); CO2, Blood 26 mmol/L (21-32); Calcium, Blood 8.9 mg/dL (8.5-10.1); Chloride, Blood 100 mmol/L (98-108); Creatinine, Blood 0.63 mg/dL (0.40-1.00); Glomerular Filtration Rate 85 (60-); Glucose, Blood 94 mg/dL (70-99); Magnesium, Blood 1.8 mg/dL (1.6-2.4); Phosphorus, Blood 3.8 mg/dL (2.5-4.9); Potassium, Blood 3.9 mmol/L (3.5-5.5); Sodium, Blood 133 mmol/L (136-145)
--- NOTE | 2024-03-15 06:15 | NUR ---
SHIFT SUMMARY PT RESTED FOR MOST OF SHIFT. PAIN MANAGED PER EMAR. NPO AT SD FOR POSSIBLE SURGERY TODAY. SURGICAL WIPE DOWN DONE. BACON DRAINING YELLOW URINE. VSS. NO OTHER CONCERNS AT THIS TIME, CALL LIGHT WITHIN REACH
[2024-03-15] MEDS ORDERED: Lactated Ringer's 1,000 ML IV SCH (08:40)
[2024-03-15] MEDS ORDERED: Cholecalciferol 1000 Unit Tablet (=25MCG) PO SCH (09:00)
--- NOTE | 2024-03-15 12:10 | NUR ---
Pt gone for procedure at this time. Pt A&O x4. VSS. Spo2 > 92% on 2L NC. Pt reporting 10/10 R hip pain, medicated per EMAR/pt request w/ pt report of improvement prior to pt departure.
--- NOTE | 2024-03-15 12:19 | NUR ---
PT TO SDS WITH 18G IV IN LEFT WRIST
[2024-03-15] MEDS ORDERED: Tranexamic Acid 100 ML IV SCH (12:40)
[2024-03-15] MEDS ORDERED: CeFAZolin Sodium 2,000 MG in NS 100 ML IV SCH ×2 (12:40→22:00)
[2024-03-15] MEDS ORDERED: propofoL 20 ML IV ONE (13:43)
[2024-03-15] MEDS ORDERED: FentaNYL Citrate 50 MCG/ML 2 ML Injection ONE ×2 (13:43→15:35)
[2024-03-15] MEDS ORDERED: Phenylephrine HCl 100 MCG/ML-NS 10MLSYR (1MG/10ML) ONE (14:16)
[2024-03-15] MEDS ORDERED: Phenylephrine HCl 10mg/ml 1 ml Vial ONE (14:38)
[2024-03-15] MEDS ORDERED: EpiNEPhrine 1 MG/1 ML 1ML Vial ONE (14:52)
[2024-03-15] MEDS ORDERED: Bupivacaine 0.5% HCl 5 MG/ML 30MLVIAL ONE (14:52)
--- NOTE | 2024-03-15 15:02 | NUR ---
03/15/24 1502 DEBBY CAMILO 20ML OF BUPIVACAINE 0.5% W/EPI 1:200,000 WAS INJECTED TO OPSITE BY DR GARZA AT 1502.
[2024-03-15] MEDS ORDERED: Phentolamine Mesylate 5 MG/2 ML Vial SC ONE (15:20)
[2024-03-15] MEDS ORDERED: Labetalol HCL 5 MG/ML 4ML Injection (Single Dose) ONE (15:37)
--- NOTE | 2024-03-15 16:23 | NUR ---
Recieved report from [employer]UMBING SUPERVISORMARIA M Camacho at 1623.
--- NOTE | 2024-03-15 16:39 | NUR ---
Return from procedure / Shift summary Pt arrived from PACU at 1640. Post gamma nail of right hip, folowing right hip fx. Per report pt with exravastion of LFA IV, wrapped with coban and warm blanket. SBP elevated, pt medicated in PACU, BP now improved, HR in th 80's. O2 >92% on 2L via NC. Pt denies any pain at this time, will manage per EMAR. Raya in place, draining to gravity, urine yellow. Will continue to monitor and report to next nurse.
--- NOTE | 2024-03-15 18:08 | NUR ---
THIS NURSE ASSUMING CARE OF PT. POD 0 R HIP NAILING. DRESSING COVERED WITH AQUACEL X3, C/D/I. A&O X2-3. SEEMS FORGETFUL, NOT REMEMBERING THAT SHE HAD SURGERY TODAY, REORIENTS EASILY. PT STATES THAT SHE IS EXPERIENCING NAUSEA, MEDICATED PER EMAR.
[2024-03-16 03:12] VITALS: BP 126/61
--- NOTE | 2024-03-16 05:09 | NUR ---
SHIFT SUMMARY POD 1 R HIP NAILING PT RESTLESS T/O NIGHT. PAIN MANAGED PER EMAR. TOLERATING PO INTAKE. BACON DRAINING YELLOW URINE. PT HAS BEEN SLIGHTLY CONFUSED TONIGHT. VSS. NO OTHER CONCERNS AT THIS TIME, CALL LIGHT WITHIN REACH
[2024-03-16 07:20] VITALS: BP 120/61
--- NOTE | 2024-03-16 07:33 | NUR ---
ASSUMED CARE AND COMFORT OF THIS PATIENT AT 0700 FROM FRANCISCO JAVIER FRANZ. PATIENT COMPLAINING OF SEVERE PAIN AND SPASM OF RIGHT HIP. SHE HAD PROCEDURE "NAILING" YESTERDAY OF RIGHT HIP. HAS BEEN MEDICATED WITH FENTANYL IV AND OXCODONE AND TYLENOL PO WITH MINIMAL RESULTS. DECISION TO CALL (HOSPITALIST) ORDER FOR FLEXERIL RECEIVED FOR SPASMS. WILL CONTINUE TO MONITOR THIS PATIENT CLOSELY FOR ANY WANTS OR NEEDS.
[2024-03-16] MEDS ORDERED: Cyclobenzaprine HCl 10 MG Tab PO PRN (07:35)
[2024-03-16] MEDS ORDERED: Rivaroxaban 10 MG Tab PO SCH (11:01)
[2024-03-16] MEDS ORDERED: NS 250 ML IV PRN (13:55)
[2024-03-16 14:43] VITALS: BP 126/50
--- NOTE | 2024-03-16 18:12 | NUR ---
SHIFT SUMMARY; PATIENT REMAINS IN BED DURING DAY. REFUSING TO GET UP. COMPLAINS OF FEELING WEAK AND PAINFULL. MEDICATED WITH PAIN MEDICATIONS DURING DAY. 25MCG FENTANYL IV X 2. OXYCODONE PO X 2 AND FLEXERIL PO X 1 PATIENT HAS ICE BAG TO RIGHT INNER THIGH. VITAL SIGNS ARE STABLE. SHE IS NOT FEBRILE. HER WOUND SITE IS CLEAN DRY AND INTACT. SLIGHT SWELLING AND REDNESS NOTED. CMS INTACT. PATIENT IS AO X 3 TO 4 DURING DAY. HAS EPISODE WHERE SHE STRIPS OFF HER GOWN THIS AFTERNOON AND IS CONFUSED AND THINKING SHE IS GOING HOME. SHE IS RE ORIENTED WITH GOOD RESULTS AND THIS RN AND CONSTANTINE AVENDAÑO MONITOR PATIENT CLOSELY. BED ALARM REMAINS ON. WILL CONTINUE TO MONITOR THIS PATIENT CLOSELY UNTIL REPORT AND HAND OFF TO NOC SHIFT RN.
[2024-03-16 18:47] VITALS: BP 115/49
[2024-03-17 03:06] VITALS: BP 153/58
[2024-03-17 04:16] VITALS: BP 141/65
--- NOTE | 2024-03-17 05:27 | NUR ---
SHIFT SUMMARY POD 2 RIGHT HIP NAILING, AQUACEL DRESSING 3X CDI. PAIN MANAGED WITH 1 PAIN PILL, REPOSITIONING AND ICE THERAPY. MEDICATED ONCE DURING SHIFT FOR PAIN. CONT BIOX IN PLACE, SPO2 AT 96% ON 1L NC. BACON TO GRAVITY DRAIN PRODUCING CLEAR YELLOW URINE. REPORTS PASSING FLATUS. ABX INFUSED PER ORDERS. REPOSITIONED T/O NIGHT. PT ABLE TO MAKE NEEDS KNOWN. PLAN TO WORK WITH THERAPY TODAY. PT CURRENTLY RESTING IN BED WTH EYES CLOSED AND CALL LIGHT IN REACH. PLAN TO GIVE REPORT TO COMING RN. WILL CONTINUE TO CARE FOR PATIENT UNTIL SHIFT CHANGE.
[2024-03-17 07:19] VITALS: BP 148/66
[2024-03-17] MEDS ORDERED: Rivaroxaban 2.5 MG TABLET PO ONE (08:45)
[2024-03-17 14:25] VITALS: BP 145/53
--- NOTE | 2024-03-17 15:59 | NUR ---
SHIFT SUMMARY; BACON CATHETER REMOVED THIS AFTERNOON FROM PATIENT. ATTENDS IN PLACE. PATIENT ENCOURAGED TO CALL FOR ASSIST TO BEDPAN. VITAL SIGNS SHOW SHE IS SLIGHTLY HYPERTENSIVE HOWEVER SHE DENIES ANY CHEST PAIN OR PRESSURE. SHE IS NOT FEBRILE. HER LUNGS ARE DIMINISHED AND SHE HAS CRACKLES NOTED IN BASES THAT CLEAR WITH COUGH. SHE HAS EXPIRATORY WHEEZES NOTED TO RIGHT SIDE UPPER AND LOWER LOBES. SHE IS AO X 3 TODAY. IV TO RIGHT FOREARM IS PATENT. SHE IS MEDICATED X 1 FOR PAIN TODAY WITH GOOD RESULTS. SHE DID WORK WITH PT AND RECOMMENDATION FOR SNF IS RECEIVED. PATIENT IS NON WEIGHT BEARING ON LEFT AND TOE TOUCH ON RIGHT. SHE IS VERY WEAK AND UNABLE TO ASSIST IN TRANSFERS. WILL CONTINUE TO MONITOR THIS PATIENT CLOSELY UNTIL REPORT AND HAND OFF TO NOC SHIFT RN.
[2024-03-17 18:27] VITALS: BP 169/96
[2024-03-17 18:29] VITALS: BP 156/72
[2024-03-17] MEDS ORDERED: Cephalexin Monohydrate 500 MG Cap PO ONE (22:00)
--- NOTE | 2024-03-18 04:12 | NUR ---
SHIFT SUMMARY POD #3 S/P RIGHT HIP NAILING. DRESSING TO RIGHT HIP X3 CHANGE THIS SHIFT DUE TO EDGES LIFTING, ANITA IN PLACE AND NEW AQUACEL X3 APPLIED. PAIN MANAGED PER EMAR, ICE THERAPY, AND RESPOSITIONING. TURN Q2 WITH MAX ASSISTANCE. PT UNABLE TO VOID, BLADDER SCAN AND STRAIGHT CATH COMPLETED. PT UNABLE TO VOID DESPITE BEING PLACED ON BEDPAIN. 800ML OUT WITH STARIGHT CATH, URINE CLEAR YELLOW. BOARDERED FOAM APPLIED TO COCCYX DUE TO REDDEND AREA. SUPERFICIAL ABRASION TO RIGHT POSTERIOR HIP NOTED, COVERED WIH DRESSING. CONT SPO2 IN PLACE, PT PLACED 1L NC POST PAIN MEDICATION- SPO2 NOW AT ABOVE 94%. PT APPREARS TO HAVE RESTED WELL T/O SHIFT. USES CALL LIGHT AND ABLE TO MAKE NEEDS KNOWN. PLAN TO D/C TODAY
[2024-03-18 04:46] VITALS: BP 139/64
[2024-03-18 08:43] VITALS: BP 134/53
[2024-03-18] MEDS ORDERED: Rivaroxaban 10 MG Tab PO SCH (09:00)
--- NOTE | 2024-03-18 18:47 | NUR ---
DISCHARGE SUMMARY POD 3 R HIP PINNING. PT D/C'd TO SNF VIA GOURNEY BY EMS. PT TRANSFERRED USING SLIDE SHEET, TOLERATED WELL. TOLERATING ORALS, ENC PO INTAKE. VOIDING USING BEDPAN. BASELINE A&O x2, COOPERATIVE c CARE. VSS. PT REPORTS PAIN TOLERABLE c ORAL MEDICATIONS. SCRIPT IN PT BELONGINGS. AQUACEL x3 C/D/I. PER PHYCSCIAL THERAPY, LIFT FOR AMBULATION RECOMMENDED. WHEN ATTEMPTING STAND/PIVOT FROM CHAIR TO BED, PT REQUIRED 3 PERSON MAX ASSIST. TTWB ON RLE. DAUGHTER NOTIFIED OF PT DC. 1520 - REPORT GIVEN TO SNF
== END 2024-03-18 18:47 | DRG 482 ==
LOC: ER 06:35 → SURS 10:14 → ERHOLD 10:14 → SURS 12:19
PROVIDERS: Orthopaedic Surgery; Student in an Organized Health Care Education/Training Program; ADMIT Internal Medicine
PROC: 0QH634Z Insertion of Internal Fixation Device into Right Upper Femur, Percutaneous Approach (ICD-10-PCS; principal; 2024-03-15 13:00)
DX: S72.141A Displaced intertrochanteric fracture of right femur, initial encounter for closed fracture (principal); G35 Multiple sclerosis; K21.9 Gastro-esophageal reflux disease without esophagitis; D50.9 Iron deficiency anemia, unspecified; Z66 Do not resuscitate; F41.9 Anxiety disorder, unspecified; E89.0 Postprocedural hypothyroidism; W01.0XXA Fall on same level from slipping, tripping and stumbling without subsequent striking against object, initial encounter; H91.90 Unspecified hearing loss, unspecified ear; E66.9 Obesity, unspecified; I48.0 Paroxysmal atrial fibrillation; I10 Essential (primary) hypertension; Z87.440 Personal history of urinary (tract) infections; Z90.710 Acquired absence of both cervix and uterus; Z98.51 Tubal ligation status; Z98.1 Arthrodesis status; Z90.49 Acquired absence of other specified parts of digestive tract; Z79.899 Other long term (current) drug therapy; Z99.3 Dependence on wheelchair; Z68.39 Body mass index [BMI] 39.0-39.9, adult; Z88.2 Allergy status to sulfonamides; Z88.5 Allergy status to narcotic agent; Z88.1 Allergy status to other antibiotic agents; Z88.8 Allergy status to other drugs, medicaments and biological substances
CPT/HCPCS: 36415; 51702; 73502; 80048; 80069; 81001; 83735; 85027; 94762; 96374; 96375; 97110; 97161; 97530; 99285-25; A9270; C1713; J0171; J0690; J1885; J2270; J2371; J2405; J2704; J2760; J3010; J7050; J7120

== ENCOUNTER 2024-05-25 13:10 | Emergency (ER) | payer MEDICARE, OTHER ==
[~2024-05-25] VITALS: Ht 165.1 cm; Wt 75.3 kg
[~2024-05-25 13:10] MED LIST changes: +THERA-D2000 UNIT PO; +XARELTO15 MG PO
[2024-05-25] MEDS ORDERED: Oxymetazoline 0.05% Nasal Relief Spray 15mL BTL ONE (13:20)
[2024-05-25 13:53] LABS: BASOPHILS ABSOLUTE AUTO 0.06 K/mm3 (0.00-0.23); BASOPHILS PERCENT AUTO 0 % (0-2); EOSINOPHILS ABSOLUTE AUTO 0.12 K/mm3 (0.00-0.68); EOSINOPHILS PERCENT AUTO 1 % (0-6); Hematocrit 40.5 % (33.0-51.0); Hemoglobin 12.8 g/dL (11.5-16.0); IMMATURE GRAN ABSOLUTE AUTO 0.11 K/mm3 (0.00-0.10); IMMATURE GRAN PERCENT AUTO 1 % (0-1); LYMPHOCYTES ABSOLUTE AUTO 4.31 K/mm3 (0.84-5.20); LYMPHOCYTES PERCENT AUTO 22 % (21-46); MONOCYTES ABSOLUTE AUTO 1.02 K/mm3 (0.16-1.47); MONOCYTES PERCENT AUTO 5 % (4-13); Mean Corpuscular HGB 25.8 pg (26.0-34.0); Mean Corpuscular HGB Conc 31.6 g/dL (31.5-36.5); Mean Corpuscular Volume 82 fL (80-100); Mean Platelet Volume 9.6 fL (9.1-12.4); NEUTROPHILS ABSOLUTE AUTO 13.95 K/mm3 (1.96-9.15); NEUTROPHILS PERCENT AUTO 71 % (41-73); Platelet Count 421 K/mm3 (150-400); RDW Coefficient Variation 15.5 % (11.7-14.2); RDW Standard Deviation 46.5 fL (35.1-46.3); Red Blood Cell Count 4.96 M/mm3 (3.80-5.20); White Blood Cell Count 19.57 K/mm3 (4.00-11.30)
[2024-05-25] MEDS ORDERED: Tranexamic Acid 100 ML IV ONE ×2 (14:10→15:00)
[2024-05-25] MEDS ORDERED: Tranexamic Acid 1000 MG/10 ML 10ML Vial (SDV) TOP ONE ×2 (14:15→14:20)
[2024-05-25] MEDS ORDERED: NS 1,000 ML IV SCH (14:45)
[2024-05-25] MEDS ORDERED: Ondansetron HCl 2 MG / ML 2ML Vial IV ONE (16:00)
[2024-05-25 16:35] LABS: Hematocrit 37.1 % (33.0-51.0); Hemoglobin 11.6 g/dL (11.5-16.0)
[2024-05-25 18:00] VITALS: BP 140/128
== END 2024-05-25 18:15 | disposition home or self-care (01) ==
LOC: ER 13:10
PROVIDERS: Student in an Organized Health Care Education/Training Program
DX: R04.0 Epistaxis (principal); I10 Essential (primary) hypertension; G35 Multiple sclerosis; Z88.2 Allergy status to sulfonamides; Z88.5 Allergy status to narcotic agent; Z88.1 Allergy status to other antibiotic agents; Z88.8 Allergy status to other drugs, medicaments and biological substances; Z79.899 Other long term (current) drug therapy; Z79.02 Long term (current) use of antithrombotics/antiplatelets; Z86.73 Personal history of transient ischemic attack (TIA), and cerebral infarction without residual deficits
CPT/HCPCS: 30901; 85014; 85018; 85025; 86850; 86900; 86901; 96361-59; 96374-59; 96375-59; 99283-25; A9270; J2405; J7030

== ENCOUNTER → 2024-07-24 | Outpatient (CLI) | payer MEDICARE, OTHER ==
[2024-07-24 14:22] LABS: Source, Urine Clean Catch
[2024-07-24 18:48] LABS: Appearance, Urine Cloudy (Clear); Bilirubin, Urine Neg (Neg); Blood, Urine 3+ (Neg); Glucose Qualitative, Urine Neg (Neg); Ketones, Urine Neg (Neg); Leukocyte Esterase, Urine 3+ (Neg); Nitrite, Urine Pos (Neg); Protein, Urine 2+ (Neg); Urobilinogen, Urine NORM (Normal)
[2024-07-24 19:25] LABS: Color, Urine Pale Yellow (P-Yellow); White Blood Cells, Urine TNTC /hpf (0-5)
[2024-07-24 19:26] LABS: Bacteria Many /hpf; Red Blood Cells, Urine 0-2 /hpf (0-2); Squamous Epithelial Cells Few /hpf (Few)
[2024-07-24 19:27] LABS: Mucus Light (0-Heavy); Transitional Epithelial Cells Rare /hpf (0-Rare)
== END ==
LOC: LAB SHORT 08:00 → LAB 08:00
PROVIDERS: Legal Medicine
DX: R39.81 Functional urinary incontinence (principal)
CPT/HCPCS: 81001; 87077; 87086; 87186

== ENCOUNTER 2024-09-28 13:28 | Emergency (ER) | payer OTHER, MEDICARE ==
[~2024-09-28] VITALS: Ht 162.6 cm; Wt 77.1 kg
[2024-09-28 13:39] VITALS: BP 184/101
== END 2024-09-28 16:04 | disposition home or self-care (01) ==
LOC: ER 13:28
DX: S01.81XA Laceration without foreign body of other part of head, initial encounter (principal); I10 Essential (primary) hypertension; W01.0XXA Fall on same level from slipping, tripping and stumbling without subsequent striking against object, initial encounter; Z88.2 Allergy status to sulfonamides; Z88.5 Allergy status to narcotic agent; Z88.1 Allergy status to other antibiotic agents; Z88.8 Allergy status to other drugs, medicaments and biological substances; Z79.899 Other long term (current) drug therapy; Z79.51 Long term (current) use of inhaled steroids
CPT/HCPCS: 12011; 70450; 99283-25

== ENCOUNTER 2024-11-25 17:02 | Emergency (ER) | payer MEDICARE, OTHER ==
[~2024-11-25] VITALS: Ht 152.4 cm; Wt 72.6 kg
[2024-11-25 17:28] LABS: Hematocrit 40.8 % (33.0-51.0); Hemoglobin 13.2 g/dL (11.5-16.0); Mean Corpuscular HGB Conc 32.4 g/dL (31.5-36.5); Mean Corpuscular Volume 76 fL (80-100); NRBC ABSOLUTE 0.00 K/mm3 (0.00-0.02); NRBC Auto 0.0 /100 WBC (0.0-0.2); Platelet Count 472 K/mm3 (150-400); RDW Coefficient Variation 17.5 % (11.7-14.2); RDW Standard Deviation 47.7 fL (35.1-46.3)
[2024-11-25] MEDS ORDERED: Ondansetron HCl 2 MG / ML 2ML Vial ONE (17:44)
[2024-11-25 17:52] LABS: Prothrombin Time Results 11.4 Sec (9.7-11.5)
[2024-11-25 17:56] LABS: Alanine Aminotransfer (ALT/SGP 25.0 U/L (12-78); Albumin, Blood 3.8 g/dL (3.4-5.0); Albumin/Globulin Ratio 1.0 (0.8-1.8); Anion Gap 9.0 mmol/L (3-11); Aspartate Aminotrans (AST/SGOT 22.0 U/L (12-37); Bilirubin, Total 0.6 mg/dL (0.1-1.0); Blood Urea Nitrogen 15.0 mg/dL (8-24); CO2, Blood 27.0 mmol/L (21-32); Calcium, Blood 9.3 mg/dL (8.5-10.1); Chloride, Blood 97.0 mmol/L (98-108); Creatinine, Blood 0.59 mg/dL (0.40-1.00); Globulin, Blood 3.7 g/dL (2.2-4.0); Glucose, Blood 164.0 mg/dL (70-99); Potassium, Blood 3.2 mmol/L (3.5-5.5); Sodium, Blood 130.0 mmol/L (136-145); Total Protein, Blood 7.5 g/dL (6.4-8.2)
[2024-11-25 18:01] LABS: BASOPHILS ABSOLUTE MAN 0.00 K/mm3 (0.00-0.23); BASOPHILS PERCENT MAN 0 % (0-2); EOSINOPHILS ABSOLUTE MAN 0.00 K/mm3 (0.00-0.68); EOSINOPHILS PERCENT MAN 0 % (0-6); LYMPHOCYTES ABSOLUTE MAN 4.05 K/mm3 (0.84-5.20); LYMPHOCYTES PERCENT MAN 16 % (21-46); MONOCYTES ABSOLUTE MAN 0.75 K/mm3 (0.16-1.47); MONOCYTES PERCENT MAN 3 % (4-13); NEUTROPHILS ABSOLUTE MAN 20.51 K/mm3 (1.96-9.15); SEG NEUTROPHILS PERCENT MAN 81 % (41-73)
[2024-11-25] MEDS ORDERED: Morphine Sulfate 4 MG/1 ML Injection IV ONE ×2 (18:15→20:45)
[2024-11-25] MEDS ORDERED: Ondansetron HCl 2 MG / ML 2ML Vial IV ONE (19:15)
[2024-11-25] MEDS ORDERED: Metoclopramide HCl 5MG / ML 2ML Vial IV ONE (20:45)
[2024-11-25] MEDS ORDERED: DiphenhydrAMINE HCl 50 MG/ML 1ML Vial IV ONE (20:45)
[2024-11-26] MEDS ORDERED: Morphine Sulfate 4 MG/1 ML Injection IV ONE ×2 (07:45→13:50)
[2024-11-26] MEDS ORDERED: Ondansetron HCl 2 MG / ML 2ML Vial IV ONE ×2 (12:05→12:25)
[2024-11-26 15:00] VITALS: BP 165/69
== END 2024-11-26 15:25 ==
LOC: ER 17:02
PROVIDERS: Student in an Organized Health Care Education/Training Program
DX: S12.121A Other nondisplaced dens fracture, initial encounter for closed fracture (principal); S12.091A Other nondisplaced fracture of first cervical vertebra, initial encounter for closed fracture; S00.03XA Contusion of scalp, initial encounter; G35 Multiple sclerosis; I10 Essential (primary) hypertension; I48.0 Paroxysmal atrial fibrillation; Z86.73 Personal history of transient ischemic attack (TIA), and cerebral infarction without residual deficits; Z88.2 Allergy status to sulfonamides; Z88.5 Allergy status to narcotic agent; Z88.1 Allergy status to other antibiotic agents; Z88.8 Allergy status to other drugs, medicaments and biological substances; Z79.01 Long term (current) use of anticoagulants; Z79.899 Other long term (current) drug therapy; W07.XXXA Fall from chair, initial encounter
CPT/HCPCS: 70450; 70486; 70498; 72125; 72128; 72131; 72141; 80053; 82947; 85025; 85610; 85730; 90471; 90715; 93005; 93010; 96374-59; 96375-59; 96376; 96376-59; 99285-25; A9270; J1200; J2270; J2405; J2765; Q9967